=== PATIENT | female | born 1995 | race Hispanic/Latino ===

== ENCOUNTER 2025-01-17 11:05 | Emergency (ER) | payer SELFPAY ==
[~2025-01-17] VITALS: Ht 172.7 cm; Wt 110.4 kg
[2025-01-17 11:19] VITALS: TEMP 98.6
[2025-01-17] MEDS: SODIUM CHLORIDE 0.9% 1000ML 1,000 ML IV ONE (12:52)
[2025-01-17] MEDS: ASPIRIN 325 MG TAB PO ONE (12:52)
[2025-01-17 14:01] VITALS: PULSE 78; RESP 16; O2SAT 99
[2025-01-18] MEDS ORDERED: FAMOTIDINE 20 MG/2 ML VIAL IV SCH (09:00)
== END 2025-01-17 14:06 | disposition home or self-care (01) ==
LOC: FSED 11:41
DX: R07.89 Other chest pain (principal); R53.1 Weakness
CPT/HCPCS: 71046; 80048; 80076; 80307; 81003; 81025; 83880; 84484; 85025; 85379; 93005; 99284; J7030